=== PATIENT | male | born 1990 | race Caucasian/White ===

== ENCOUNTER 2016-08-14 16:27 | Emergency (ER) ==
[2016-08-14 17:29] LABS: URINE SOURCE VOIDED
[2016-08-14 17:34] LABS: UR AMPHETAMINES QUAL NONE DETECTED (NONE DETECT); UR BARBITUATES QUAL NONE DETECTED (NONE DETECT); UR BENZODIAZEPIN QUAL NONE DETECTED (NONE DETECT); UR CANNABINOIDS QUAL PRESUMPTIVE POSITIVE (NONE DETECT); UR COCAINE QUAL NONE DETECTED (NONE DETECT); UR MDMA QUAL NONE DETECTED (NONE DETECT); UR METHADONE QUAL NONE DETECTED (NONE DETECT); UR METHAMPHETAMINE QUAL NONE DETECTED (NONE DETECT); UR OPIATES QUAL NONE DETECTED (NONE DETECT); UR OXYCODONE QUAL NONE DETECTED (NONE DETECT); UR PCP QUAL NONE DETECTED (NONE DETECT); UR TCA QUAL NONE DETECTED (NONE DETECT)
[2016-08-14 17:41] LABS: BILIRUBIN URINE NEGATIVE (NEGATIVE); BLOOD URINE NEGATIVE (NEGATIVE); CLARITY CLEAR (CLEAR); COLOR YELLOW; LEUKOCYTES URINE TRACE (NEGATIVE); NITRITE URINE NEGATIVE (NEGATIVE); PROTEIN URINE 1+(30 mg/dL) mg/dL (NEGATIVE); SP GRAVITY URINE 1.025; UROBILINOGEN URINE 4+(12 mg/dL)
[2016-08-14 17:43] LABS: MANUAL DIFF NEEDED? NO
[2016-08-14 17:45] LABS: URINE CULTURE PL NEEDED? YES; URINE EPITHELIAL CELLS <10 /HPF (<10); URINE RBC <10 /HPF (<10); URINE WBC <10 /HPF (<10)
[2016-08-14 17:47] LABS: URINE CRYSTAL CA OXALATE PRESENT /HPF
[2016-08-14 17:51] LABS: BASO% 0.2 % (0.0-0.8); EOS# 0.09 X1000 (0.0-0.7); HEMATOCRIT 48.5 % (42.0-52.0); HEMOGLOBIN 15.9 g/dL (14.0-18.0); IMM GRAN# 0.01 X1000 (0.0-0.04); IMM GRAN% 0.1 % (0.0-0.5); LYMPH# 1.35 X1000 (1.2-3.4); LYMPH% 14.9 % (20.5-51.1); MCH 29.3 PG (27-31); MCHC 32.8 g/dL (33-37); MCV 89.5 FL (81-99); MONO# 0.81 X1000 (0.11-0.59); MONO% 8.9 % (1.7-9.3); MPV 10.1 FL (7.4-10.4); NEUT% 74.9 % (42.2-75.2); PLT 309 X1000 (130-400); RBC 5.42 XMIL (4.7-6.1)
[2016-08-14 18:11] LABS: AGAP 9; ALBUMIN 4.4 g/dL (3.5-5.0); ALKALINE PHOSPHATASE 129 U/L (32-122); BUN 11 mg/dL (8-22); CHLORIDE 104 mmol/L (98-107); COSMO 280; GOT 19 U/L (10-34); GPT 17 U/L (10-44); POTASSIUM 3.7 mmol/L (3.5-5.1); SODIUM 140 mmol/L (136-145); TCO2 28 mmol/L (25-35)
[2016-08-14 18:36] LABS: FREE T4 1.05 ng/dL (0.93-1.70)
--- NOTE | 2016-08-14 19:11 | PROVIDER DOCUMENTATION ---
HPI-Psychological Disorder <Sean Parker - Last Filed: 08/14/16 22:05> - General Source: patient <Stefania Monteiro - Last Filed: 08/16/16 20:42> - General Chief Complaint: Psych Stated Complaint: PHYSC EVAL Time Seen by Provider: 08/14/16 18:36 Allergies/Adverse Reactions: Patient Allergies Allergy/AdvReac Type Severity Reaction Status Date / Time No Known Allergies Allergy Verified 08/14/16 16:50 Home Medications: Amphetamine Salts [Adderall] 20 mg PO BID 08/14/16 Escitalopram Oxalate [Lexapro] 20 mg PO 08/14/16 No Home Medications 08/14/16 - History of Present Illness-Psych Nature of Presenting Problem: 26 y/o WM c/o SI, depression x 1 year, worse in last 3 days. Pt states that he had a plan to shoot himself [place], but his girlfriend unloaded the weapon before he could get to it. States that he was walking to the [employer] after that, when his parents intercepted him. States many other plans that he has as backups. Reports long hx of depression and SI with some attempts. Denies any other sxs, including fever/chills, recent illness. Taking lexapro and adderall for depressive type of ADHD. (Stefania Monteiro) Review of Systems - Adult - REVIEW OF SYSTEMS - ADULT Constitutional: reports: no symptoms reported. denies: chills, fever Eyes: reports: no symptoms reported. denies: blurred vision, double vision Ears, Nose, Mouth & Throat: reports: no symptoms reported. denies: ear pain, nose pain Cardiovascular: reports: no symptoms reported. denies: chest pain, palpitations Respiratory: reports: no symptoms reported. denies: dyspnea on exertion, shortness of breath Gastrointestinal: reports: poor appetite. denies: abdominal pain, nausea, vomiting Genitourinary: reports: no symptoms reported. denies: dysuria, frequency Musculoskeletal: reports: no symptoms reported. denies: joint pain, joint swelling Integumentary: reports: no symptoms reported. denies: nail changes, rash Neurological: reports: no symptoms reported. denies: numbness, paresthesia Psychiatric: reports: see HPI, depression, suicidal thoughts Endocrine: reports: no symptoms reported. denies: cold intolerance, heat intolerance Hematologic/Lymphatic: reports: no symptoms reported. denies: easy bruising, prolonged bleeding Allergic/Immunologic: reports: no symptoms reported All Other Systems: Reviewed and Negative <Stefania MonteiroBeni - Last Filed: 08/16/16 20:42> Past History - Adult - PAST MEDICAL HISTORY-ADULT Review of Records: reports: Nursing Assessment Review, Medications Reviewed - SOCIAL HISTORY Smoking: cigarettes, less than 1 pack/day Provider spent 3-5 mins advising pt. on dangers of tobacco.: Discussed manners to quit use, and f/u contacts for add'l counseling. Substance Use: marijuana Alcohol Use Frequency: twice a week Number of drinks per typical drinking period:: 2 drinks <Kassi Monteiroine HoracioBeni - Last Filed: 08/16/16 20:42> Physical Exam-Psych Focus - Physical Exam-Psych Initial Vital Signs Reviewed: Yes Appearance: appropriate appearance, appropriate insight, neat, no memory impairment, denies illness, alert Neurological: alert, calm, microstrategy developer II-XII nml as tested, oriented x 3, depressed affect Behavior/Eye Contact/Speech: cooperative, good eye contact Thoughts/Hallucinations: normal thought pattern, no apparent hallucination HENMT: normocephalic/atraumatic, moist mucous membranes, pharynx normal. negative: hearing deficit Neck: full range of motion, supple, normal inspection Respiratory: lungs clear, normal breath sounds. negative: crackles, rales, rhonchi, stridor, wheezing Cardiovascular: regular rate, rhythm. negative: bradycardia, tachycardia Abdominal Exam: normal bowel sounds, non tender, soft. negative: distended, guarding, rigid, rebound Back Exam: normal inspection Extremity: normal gait, normal capillary refill. negative: abnormal NV exam Integumentary: normal color, normal turgor, warm/dry <Stefania MonteiroBeni - Last Filed: 08/16/16 20:42> Progress - EKG 1 Time of EKG reading by physician:: 21:45 EKG Read and Signed by:: Favio Saldana EKG Interpretation (*Must complete 3 of following elements*): Abnormal Rate: 57 Rhythm: SINUS BRADYCARDIA [place]: normal QRS: normal <Sean Parker - Last Filed: 08/14/16 22:05> <ThaniaStefania A. - Last Filed: 08/16/16 20:42> - PLAN OF CARE/RESULTS Progress/Plan/Lab Results: Laboratory Tests 08/14/16 08/14/16 08/14/16 17:10 17:10 17:25 WBC RBC Hgb Hct MCV MCH MCHC RDW Std Deviation Plt Count MPV Immature Gran % (Auto) Neut % (Auto) Lymph % (Auto) [place] % (Auto) Eos % (Auto) Baso % (Auto) Immature Gran # (Auto) Neut # (Auto) Lymph # (Auto) [place] # (Auto) Eos # (Auto) Baso # (Auto) Sodium 140 Potassium 3.7 Chloride 104 Carbon Dioxide 28 Anion Gap 9 BUN 11 Creatinine 1.0 Estimated GFR/1.73 m2 > 60 BUN/Creatinine Ratio 11 Glucose 112 H Calculated Osmolality 280 Calcium 9.0 Total Bilirubin 0.40 AST 19 ALT 17 Alkaline Phosphatase 129 H Total Protein 7.0 Albumin 4.4 Globulin 3.0 Albumin/Globulin Ratio 2.0 Vitamin B12 TSH Free T4 Urine Source VOIDED Urine Color YELLOW Urine Clarity CLEAR Urine pH 6.0 Ur Specific [place] 1.025 Urine Protein 1+(30 mg/dL) A Urine Ketones 1+(Small) A Urine Blood NEGATIVE Urine Nitrite NEGATIVE Urine Bilirubin NEGATIVE Urine Urobilinogen 4+(12 mg/dL) Urine Microscopic RBC <10 Urine WBC TRACE A Urine Microscopic WBC <10 Ur Epithelial Cells <10 Urine Crystals CA OXALATE PRESENT Urine Bacteria NEGATIVE Urine Glucose TRACE(50 mg/dL) A Urine Opiates Screen NONE DETECTED Ur Oxycodone Screen NONE DETECTED Urine Methadone Screen NONE DETECTED Ur Barbituates Screen NONE DETECTED Ur Tricyclics Screen NONE DETECTED Ur Phencyclidine Scrn NONE DETECTED Ur Amphetamines Screen NONE DETECTED U Methamphetamines Scrn NONE DETECTED Urine MDMA Screen NONE DETECTED U Benzodiazepines Scrn NONE DETECTED Urine Cocaine Screen NONE DETECTED U Cannabinoids Screen PRESUMPTIVE POSITIVE A Plasma/Serum Ethyl Alc 08/14/16 08/14/16 08/14/16 17:25 17:25 17:25 WBC 9.07 RBC 5.42 Hgb 15.9 Hct 48.5 MCV 89.5 MCH 29.3 MCHC 32.8 L RDW Std Deviation 12.9 Plt Count 309 MPV 10.1 Immature Gran % (Auto) 0.1 Neut % (Auto) 74.9 Lymph % (Auto) 14.9 L [place] % (Auto) 8.9 Eos % (Auto) 1.0 Baso % (Auto) 0.2 Immature Gran # (Auto) 0.01 Neut # (Auto) 6.79 H Lymph # (Auto) 1.35 [place] # (Auto) 0.81 H Eos # (Auto) 0.09 Baso # (Auto) 0.02 Sodium Potassium Chloride Carbon Dioxide Anion Gap BUN Creatinine Estimated GFR/1.73 m2 BUN/Creatinine Ratio Glucose Calculated Osmolality Calcium Total Bilirubin AST ALT Alkaline Phosphatase Total Protein Albumin Globulin Albumin/Globulin Ratio Vitamin B12 423 TSH 0.68 Free T4 1.05 Urine Source Urine Color Urine Clarity Urine pH Ur Specific [place] Urine Protein Urine Ketones Urine Blood Urine Nitrite Urine Bilirubin Urine Urobilinogen Urine Microscopic RBC Urine WBC Urine Microscopic WBC Ur Epithelial Cells Urine Crystals Urine Bacteria Urine Glucose Urine Opiates Screen Ur Oxycodone Screen Urine Methadone Screen Ur Barbituates Screen Ur Tricyclics Screen Ur Phencyclidine Scrn Ur Amphetamines Screen U Methamphetamines Scrn Urine MDMA Screen U Benzodiazepines Scrn Urine Cocaine Screen U Cannabinoids Screen Plasma/Serum Ethyl Alc Orders Category Date Time Status ALCOHOL BLOOD Stat Lab 08/14/16 17:25 Completed CBC WITH ELECTRONIC DIFF [HEME] Stat Lab 08/14/16 17:25 Completed COMPREHENSIVE METABOLIC PANEL [CHEM] Stat Lab 08/14/16 17:25 Completed FREE T4 Stat Lab 08/14/16 17:25 Completed TSH Stat Lab 08/14/16 17:[address] W/POSS RFLX CULT [URINALYSIS] Stat Lab 08/14/16 17:10 Completed URINE CULTURE [RM] Routine Lab 08/14/16 17:49 Com[address]INE DRUG SCREEN [address] Stat Lab 08/14/16 17:10 Completed VITAMIN B12 Stat Lab 08/14/16 17:25 Completed Acetaminophen [Tylenol] Med 08/14/16 20:14 Discontinued 650 mg PO NOW ONE Ciprofloxacin [Cipro] Med 08/14/16 20:14 Discontinued 500 mg PO NOW ONE EKG [EKG] Routine Ther 08/14/16 21:40 Draft Vital Signs Temp Pulse Resp BP Pulse Ox 08/15/16 02:50 98.7 F 76 18 142/86 98 08/15/16 02:32 98.7 F 76 18 142/86 98 08/15/16 00:11 98.7 F 66 20 138/78 98 08/14/16 16:43 100.9 F H 94 H 18 150/093 99 No Known Allergies Allergy (Verified 08/14/16 16:50) Amphetamine Salts [Adderall] 20 mg PO BID 08/14/16 Escitalopram Oxalate [Lexapro] 20 mg PO 08/14/16 No Home Medications 08/14/16 Laboratory 08/14/16 17:25 Vitamin B12 423 TSH 0.68 Free T4 1.05 Pt accepted by [facility] and left ED without incident. (Stefania Monteiro) Departure <Sean Parker - Last Filed: 08/14/16 22:05> - Departure Time of Disposition Order: 20:14 Certified Medical Emergency: Emergent <Stefania Monteiro - Last Filed: 08/16/16 20:42> - Departure DIAGNOSIS: Suicidal ideations Depression Qualifiers: Depression Type: unspecified Qualified Code(s): F32.9 - Major depressive disorder, single episode, unspecified Disposition: [facility] Condition: Stable Additional Instructions: ED Follow Up Instructions: You have been treated by a care provider in the Emergency Department. These instructions are being provided to you so you can have an understanding of how to care for yourself upon discharge. Upon discharge from the Emergency Department, you are responsible for making arrangements for follow-up care by a physician of your choice. Take all prescribed medications as directed. Return to the Emergency Department immediately for any new or worsening symptoms. You may call the Physician Referral phone number at [phone] to obtain a list of Physicians who are taking new patients. Referrals: None,PCP [Primary Care Provider] - Attestation - Physician/ Mid-level Attestation Patient care was provided by Mid-level provider (LINER CHECKER/PA):: Yes Mid-level provider:: Stefania Monteiro Mid-level documentation review:: The Mid-level provider documentation, treatment plan and medical decision making was reviewed by the physician who agrees with all treatment and medical decision making by the MLP. <Stefania Monteiro - Last Filed: 08/16/16 20:42> Physician Attestation
[2016-08-14] MEDS ORDERED: CIPRO PO ONE (20:14)
[2016-08-14] MEDS ORDERED: TYLENOL PO ONE (20:14)
[2016-08-15 02:33] VITALS: BP 142/86
--- NOTE | 2016-08-15 08:08 | EKG Report ---
Test Performed on : 08/14/2016 9:44:55 PM Test Reason : Done at [facility]/No order in [facility] Blood Pressure : / mmHG Vent. Rate : 057 BPM Atrial Rate : 057 BPM P-R Int : 120 ms QRS Dur : 090 ms QT Int : 404 ms P-R-T Axes : 084 080 066 degrees QTc Int : 393 ms Sinus bradycardia. Otherwise normal ECG No previous ECGs available Unconfirmed Result
== END 2016-08-15 02:50 ==
LOC: P.ED 16:27
DX: F32.9 Major depressive disorder, single episode, unspecified (principal); R45.851 Suicidal ideations; F17.210 Nicotine dependence, cigarettes, uncomplicated; Z71.6 Tobacco abuse counseling; R94.31 Abnormal electrocardiogram [ECG] [EKG]; Z79.899 Other long term (current) drug therapy
CPT/HCPCS: 80053; 81001; 82607; 84439; 84443; 85025; 87088; 93005; 99285; G0477; G0480